=== PATIENT | male | born 1985 | race African-American/Black ===

== ENCOUNTER 2017-03-10 11:04 | Inpatient (IN) ==
[2017-03-10] MEDS ORDERED: ONDANSETRON ODT 4 MG TABLET SL PRN (12:15)
[2017-03-10] MEDS ORDERED: ZOLPIDEM 5 MG TABLET PO PRN (12:15)
[2017-03-10] MEDS ORDERED: HYDROmorphone 2 MG/ML SYRINGE IV PRN (12:15)
[2017-03-10] MEDS ORDERED: ACETAMINOPHEN 325 MG TABLET PO PRN (12:15)
[2017-03-10] MEDS ORDERED: ONDANSETRON 4 MG/2 ML VIAL IV PRN (12:15)
[2017-03-10] MEDS ORDERED: ALBUTEROL SULFATE 1 PUFF INHALER IH PRN (12:26)
[2017-03-10] MEDS ORDERED: FLUTICASONE PROPIONATE SPRAY.NAS NS PRN (12:26)
[2017-03-10] MEDS: 0.9 % SODIUM CHLORIDE 1,000 ML IV SCH (13:14)
[2017-03-10] MEDS: CLINDAMYCIN 600 MG in DEXTROSE 5% IN WATER 50 ML IV SCH ×3 (13:14→23:57)
[2017-03-10 13:29] LABS: ALT/SGPT 25 U/l (0-40); Albumin 4.1 gm/dL (3.2-5.2); Albumin/Globulin Ratio 1.3 (1.0-2.3); Alkaline Phosphatase 79 U/L (39-117); Bilirubin,Direct < 0.2 mg/dL (0.0-0.3); Blood Urea Nitrogen 7 mg/dl (6-20); Gamma Glutamyl Transpeptidase 37 U/L (8-61); Magnesium 1.7 mg/dL (1.6-2.5); Uric Acid 5.1 mg/dL (2.5-8.0)
[2017-03-10 13:48] LABS: Eosinophils % (Manual) 3 % (0-7); Lymphocytes % 47 % (15-49); Monocytes % (Manual) 5 % (1-12); Platelet Estimate NORMAL (NORMAL); RBC Morphology ABNORM (NORMAL); Segmented Neutrophils % 45 % (38-78); Target Cells 1+ (NONE SEEN)
[2017-03-10 13:50] LABS: Mean Corpuscular HGB Conc 33.9 g/dL (31.0-36.0); Mean Corpuscular Hemoglobin 30.2 pg (26.0-34.0); Platelet Count 220 K/mcL (140-440); RBC 4.82 M/mcL (4.50-5.90); Red Cell Distribution Width 13.9 % (11.5-14.5)
[2017-03-10 14:04] LABS: Erythrocyte Sedimentation Rate 14 mm/hr (0-15)
[2017-03-10] MEDS: 0.9 % SODIUM CHLORIDE 10 ML SYRINGE IV SCH ×2 (14:59→20:58)
[2017-03-10] MEDS: oxyCODONE HCL 5 MG TABLET PO PRN ×2 (15:08→20:57)
[2017-03-10] MEDS: DOCUSATE SODIUM 100 MG CAPSULE PO SCH (20:57)
[2017-03-10] MEDS: FLUTICASONE HFA 220MCG INHALER INH SCH (20:58)
[2017-03-11] MEDS: 0.9 % SODIUM CHLORIDE 1,000 ML IV SCH ×4 (02:08→17:16)
[2017-03-11] MEDS: CLINDAMYCIN 600 MG in DEXTROSE 5% IN WATER 50 ML IV SCH ×3 (05:38→18:00)
[2017-03-11] MEDS: 0.9 % SODIUM CHLORIDE 10 ML SYRINGE IV SCH ×3 (05:38→22:22)
[2017-03-11] MEDS ORDERED: PANTOPRAZOLE 40 MG TABLET PO SCH (07:30)
[2017-03-11] MEDS: DOCUSATE SODIUM 100 MG CAPSULE PO SCH ×2 (08:43→22:21)
[2017-03-11] MEDS: FLUTICASONE HFA 220MCG INHALER INH SCH ×3 (08:43→22:21)
[2017-03-11] MEDS ORDERED: ARIPIPRAZOLE 20 MG TABLET PO SCH (09:00)
[2017-03-11] MEDS ORDERED: DEXAMETHASONE 10 MG/ML VIAL ONE (14:00)
[2017-03-11] MEDS ORDERED: PROPOFOL 200 MG/20 ML VIAL IV ONE (14:00)
[2017-03-11] MEDS ORDERED: ONDANSETRON 4 MG/2 ML VIAL ONE (14:00)
[2017-03-11] MEDS ORDERED: MIDAZOLAM 5 MG/5 ML VIAL ONE (14:00)
[2017-03-11] MEDS ORDERED: fentaNYL 100 MCG/2 ML VIAL IV ONE (14:00)
[2017-03-11] MEDS ORDERED: LIDOCAINE HCL/PF 100 MG/5 ML SYRINGE IV ONE (14:00)
[2017-03-11] MEDS ORDERED: diphenhydrAMINE 50 MG/ML VIAL IV PRN (14:09)
[2017-03-11] MEDS ORDERED: LACTATED RINGERS 250 ML IV PRN (14:09)
[2017-03-11] MEDS ORDERED: ONDANSETRON 4 MG/2 ML VIAL IV PRN ×2 (14:09→15:06)
[2017-03-11] MEDS ORDERED: fentaNYL 100 MCG/2 ML VIAL IV PRN (14:09)
[2017-03-11] MEDS ORDERED: FLUMAZENIL 0.1 MG/ML ML IV PRN (14:09)
[2017-03-11] MEDS ORDERED: NALOXONE HCL 0.4 MG/ML VIAL IV PRN (14:09)
[2017-03-11] MEDS ORDERED: IPRATROPIUM/ALBUTEROL 3 ML AMPUL.NEB NEB PRN (14:09)
[2017-03-11] MEDS ORDERED: BENZOCAINE/MENTHOL 1 LOZENGE PO PRN (14:09)
[2017-03-11] MEDS ORDERED: MEPERIDINE 25 MG/ML SYRINGE IV PRN (14:09)
[2017-03-11] MEDS ORDERED: LACTATED RINGERS 1,000 ML IV SCH (14:15)
--- NOTE | 2017-03-11 14:27 | Brief Operative Note ---
Date of procedure: 03/11/17 Pre-op diagnosis: post-op wound infection;h/o necrotizing lymphadenitis Post-op diagnosis: other (same) Procedure: exploration and debridement of post operative groin wound right Grafts/Implants: No Anesthesia: GLMA Findings: thin mucopurulent drainage and fibrinous exudate Complications: none Surgeon: Pepe Shea Specimens Removed/Pathology: none sent Condition: stable Disposition: PACU
[2017-03-11] MEDS ORDERED: BACITRACIN 50,000 UNIT VIAL IR ONE ×2 (14:43)
[2017-03-11] MEDS ORDERED: ZOLPIDEM 5 MG TABLET PO PRN (15:06)
[2017-03-11] MEDS ORDERED: ONDANSETRON ODT 4 MG TABLET SL PRN (15:06)
[2017-03-11] MEDS ORDERED: oxyCODONE HCL 5 MG TABLET PO PRN (15:06)
[2017-03-11] MEDS ORDERED: ALBUTEROL SULFATE 1 PUFF INHALER IH PRN (15:06)
[2017-03-11] MEDS ORDERED: FLUTICASONE PROPIONATE SPRAY.NAS NS PRN (15:06)
[2017-03-11] MEDS: HYDROmorphone 2 MG/ML SYRINGE IV PRN ×2 (18:15→22:20)
[2017-03-12] MEDS: CLINDAMYCIN 600 MG in DEXTROSE 5% IN WATER 50 ML IV SCH ×4 (00:49→17:18)
[2017-03-12] MEDS: 0.9 % SODIUM CHLORIDE 1,000 ML IV SCH ×2 (05:58→08:46)
[2017-03-12] MEDS: 0.9 % SODIUM CHLORIDE 10 ML SYRINGE IV SCH ×3 (05:59→22:32)
[2017-03-12] MEDS: PANTOPRAZOLE 40 MG TABLET PO SCH (07:15)
[2017-03-12] MEDS: DOCUSATE SODIUM 100 MG CAPSULE PO SCH ×2 (08:45→22:33)
[2017-03-12] MEDS: ARIPIPRAZOLE 20 MG TABLET PO SCH (08:45)
[2017-03-12] MEDS: FLUTICASONE HFA 220MCG INHALER INH SCH ×2 (09:59→22:32)
--- NOTE | 2017-03-12 13:18 | General Surgery Progress Note ---
Subjective Patient reports: feels better, pain is less, tolerating a regular diet, afebrile Narrative: Note initiated : 03/12/17 at 1:16 pm Service Date, if different from initiated Date: [] Patient: Rhys Wilson 31 y/o M admitted on 03/10/17 for Groin Dissection/ Infection. Chief Complaint: [Patient is doing well. His incision has heavy drainage but otherwise is unremarkable. Will allow the nursing staff to change dressings on a as needed basis.] Objective Temp Pulse Resp BP Pulse Ox 98.1 F 68 16 136/69 100 03/12/17 12:00 03/12/17 04:00 03/12/17 12:00 03/12/17 12:00 03/12/17 12:00 - Additional Data Intake & Output - Last 24 hours: Intake & Output 03/10/17 03/11/17 03/12/17 03/13/17 05:59 05:59 05:59 05:59 Intake Total 2642 / 2642 2302 / 2302 2634 / 2634 Output Total 3275 / 3275 2750 / 2750 1600 / 1600 Balance -633 / -633 -448 / -448 1034 / 1034 Weight 158 lb 158 lb - Labs 03/10/17 12:47 03/10/17 12:47 Assessment and Plan (1) Infection of postoperative wound due to methicillin-resistant Staphylococcus aureus Status: Acute Assessment and plan: We will continue on IV Cleocin and dressing changes as needed. We will will be assessed on Tuesday as to whether or not it can be closed primarily Or VAC placed Current Visit: No - Time Spent With Patient Total time spent is greater than 50% in coordination of care (as documented) at patient's floor/unit and/or counseling patient:
[2017-03-12] MEDS: ACETAMINOPHEN 325 MG TABLET PO PRN ×2 (16:06→23:11)
[2017-03-13] MEDS: CLINDAMYCIN 600 MG in DEXTROSE 5% IN WATER 50 ML IV SCH ×5 (00:12→23:59)
[2017-03-13] MEDS: 0.9 % SODIUM CHLORIDE 10 ML SYRINGE IV SCH ×3 (05:20→20:48)
[2017-03-13] MEDS: PANTOPRAZOLE 40 MG TABLET PO SCH (06:48)
[2017-03-13] MEDS: ACETAMINOPHEN 325 MG TABLET PO PRN (06:49)
[2017-03-13] MEDS: DOCUSATE SODIUM 100 MG CAPSULE PO SCH ×2 (09:00→20:48)
[2017-03-13] MEDS: FLUTICASONE HFA 220MCG INHALER INH SCH (09:01)
[2017-03-13] MEDS: ARIPIPRAZOLE 20 MG TABLET PO SCH (09:01)
--- NOTE | 2017-03-13 15:04 | General Surgery Progress Note ---
Subjective Patient reports: feels better, pain is less, tolerating a regular diet, voiding w/o difficulty, flatus, bowel movement, afebrile Narrative: Note initiated : 03/13/17 at 3:03 pm Service Date, if different from initiated Date: [] Patient: Rhys Wilson 31 y/o M admitted on 03/10/17 for Groin Dissection/ Infection. Chief Complaint: [Patient is doing well. He has essentially no swelling of his incision. There is a moderate amount of wound drainage but no purulence. He is afebrile and there is no increased adenopathy] Objective Temp Pulse Resp BP Pulse Ox 98.0 F 56 L 16 124/79 99 03/13/17 11:46 03/13/17 06:43 03/13/17 11:46 03/13/17 11:46 03/13/17 11:46 - Additional Data Intake & Output - Last 24 hours: Intake & Output 03/11/17 03/12/17 03/13/17 03/14/17 05:59 05:59 05:59 05:59 Intake Total 2642 / 2642 2302 / 2302 5470 / 5470 894 / 894 Output Total 3275 / 3275 2750 / 2750 3625 / 3625 925 / 925 Balance -633 / -633 -448 / -448 1845 / 1845 -31 / -31 Weight 158 lb 158 lb 157 lb - Labs 03/10/17 12:47 03/10/17 12:47 Assessment and Plan (1) Infection of postoperative wound due to methicillin-resistant Staphylococcus aureus Status: Acute Assessment and plan: We will continue on IV Cleocin and dressing changes as needed. We will will be assessed on Tuesday as to whether or not it can be closed primarily Or VAC placed Current Visit: No - Time Spent With Patient Total time spent is greater than 50% in coordination of care (as documented) at patient's floor/unit and/or counseling patient:
[2017-03-14] MEDS: CLINDAMYCIN 600 MG in DEXTROSE 5% IN WATER 50 ML IV SCH ×3 (05:58→17:39)
[2017-03-14] MEDS: 0.9 % SODIUM CHLORIDE 10 ML SYRINGE IV SCH ×3 (05:58→21:52)
[2017-03-14] MEDS: FLUTICASONE HFA 220MCG INHALER INH SCH ×3 (06:38→21:46)
[2017-03-14] MEDS: PANTOPRAZOLE 40 MG TABLET PO SCH (06:59)
[2017-03-14] MEDS: ACETAMINOPHEN 325 MG TABLET PO PRN (07:04)
[2017-03-14] MEDS: ARIPIPRAZOLE 20 MG TABLET PO SCH (08:53)
[2017-03-14] MEDS: DOCUSATE SODIUM 100 MG CAPSULE PO SCH ×2 (08:53→21:46)
--- NOTE | 2017-03-14 14:44 | General Surgery Progress Note ---
Subjective Patient reports: feels better, pain is less, afebrile Narrative: Note initiated : 03/14/17 at 2:42 pm Service Date, if different from initiated Date: [] Patient: Rhys Wilson 31 y/o M admitted on 03/10/17 for Groin Dissection/ Infection. Chief Complaint: [Patient's wound continues to clean up nicely. He has early granulations. There is no purulent drainage. The wound is totally clean and will be amenable to secondary closure. Discussed this with the patient and will schedule him for closure in the OR tomorrow] Objective Temp Pulse Resp BP Pulse Ox 98.7 F 55 L 18 106/58 95 03/14/17 11:56 03/14/17 04:00 03/14/17 11:56 03/14/17 11:56 03/14/17 11:56 - Additional Data Intake & Output - Last 24 hours: Intake & Output 03/12/17 03/13/17 03/14/17 03/15/17 05:59 05:59 05:59 05:59 Intake Total 2302 / 2302 5470 / 5470 2272 / 2272 468 / 468 Output Total 2750 / 2750 3625 / 3625 2200 / 2200 350 / 350 Balance -448 / -448 1845 / 1845 72 / 72 118 / 118 Weight 158 lb 157 lb 156 lb - General physical appearance no distress - Eyes PERRL - ENT no congestion - Neck no venous distension - Respiratory normal expansion, normal respiratory effort, clear to auscultation - Cardiovascular Cardiovascular exam: Present: normal rate and rhythm, RRR, +S1, +S2. Absent: JVD - Abdomen soft, non tender, bowel sounds, distended (Abdomen is benign without tenderness ; good active bowel sounds) - Genitourinary normal penis with no external lesions, testicles present, testicles non-tender - Integumentary no rash, no growths, no abnormal pigmentation - Neurologic normal coordination, normal sensation - Musculoskeletal normal gait, normal posture, other (Operative site right medial thigh is clean with developing granulations and only serous drainage) - Psychiatric oriented to time, oriented to person, oriented to place, speech is normal, memory intact - Labs 03/10/17 12:47 03/10/17 12:47 Assessment and Plan (1) Infection of postoperative wound due to methicillin-resistant Staphylococcus aureus Status: Acute Assessment and plan: We will continue on IV Cleocin and dressing changes as needed. Discussed with patient the plan to do secondary closure tomorrow under anesthesia Current Visit: No - Time Spent With Patient Total time spent is greater than 50% in coordination of care (as documented) at patient's floor/unit and/or counseling patient:
[2017-03-15] MEDS: CLINDAMYCIN 600 MG in DEXTROSE 5% IN WATER 50 ML IV SCH ×5 (00:28→23:56)
[2017-03-15] MEDS: 0.9 % SODIUM CHLORIDE 10 ML SYRINGE IV SCH ×4 (00:33→23:56)
[2017-03-15 06:36] LABS: ALT/SGPT 18 U/l (0-40); Albumin 4.1 gm/dL (3.2-5.2); Albumin/Globulin Ratio 1.3 (1.0-2.3); Alkaline Phosphatase 76 U/L (39-117); Bilirubin,Direct < 0.2 mg/dL (0.0-0.3); Blood Urea Nitrogen 12 mg/dl (6-20); Gamma Glutamyl Transpeptidase 40 U/L (8-61); Magnesium 1.8 mg/dL (1.6-2.5); Uric Acid 5.7 mg/dL (2.5-8.0)
[2017-03-15 07:41] LABS: Basophils # (Auto) 0.1 K/mcL (0.0-0.3); Eosinophils # (Auto) 0.2 K/mcL (0.0-0.7); Eosinophils % (Auto) 2.6 % (0.0-7.0); Granulocytes % (Auto) 40.4 % (38.0-78.0); Lymphocytes % (Auto) 47.1 % (15.5-49.0); Mean Cell Volume 88.7 fL (80.0-100.0); Mean Corpuscular HGB Conc 33.8 g/dL (31.0-36.0); Monocytes # (Auto) 0.6 K/mcL (0.1-0.9); Monocytes % (Auto) 8.9 % (1.0-12.0); Platelet Count 232 K/mcL (140-440); RBC 5.12 M/mcL (4.50-5.90)
[2017-03-15] MEDS: PANTOPRAZOLE 40 MG TABLET PO SCH (10:18)
[2017-03-15] MEDS: DOCUSATE SODIUM 100 MG CAPSULE PO SCH ×2 (10:18→20:25)
[2017-03-15] MEDS ORDERED: LACTATED RINGERS 250 ML IV PRN (14:49)
[2017-03-15] MEDS ORDERED: FLUMAZENIL 0.1 MG/ML ML IV PRN (14:49)
[2017-03-15] MEDS ORDERED: fentaNYL 100 MCG/2 ML VIAL IV PRN (14:49)
[2017-03-15] MEDS ORDERED: diphenhydrAMINE 50 MG/ML VIAL IV PRN (14:49)
[2017-03-15] MEDS ORDERED: BENZOCAINE/MENTHOL 1 LOZENGE PO PRN (14:49)
[2017-03-15] MEDS ORDERED: ONDANSETRON 4 MG/2 ML VIAL IV PRN ×2 (14:49→16:26)
[2017-03-15] MEDS ORDERED: NALOXONE HCL 0.4 MG/ML VIAL IV PRN (14:49)
[2017-03-15] MEDS ORDERED: HYDROmorphone 2 MG/ML SYRINGE IV PRN ×2 (14:49→16:26)
[2017-03-15] MEDS ORDERED: IPRATROPIUM/ALBUTEROL 3 ML AMPUL.NEB NEB PRN (14:49)
[2017-03-15] MEDS ORDERED: MIDAZOLAM 2 MG/2 ML VIAL ONE (15:00)
[2017-03-15] MEDS ORDERED: fentaNYL 100 MCG/2 ML VIAL IV ONE (15:00)
[2017-03-15] MEDS ORDERED: LACTATED RINGERS 1,000 ML IV SCH (15:00)
[2017-03-15] MEDS ORDERED: ONDANSETRON 4 MG/2 ML VIAL ONE (15:00)
[2017-03-15] MEDS ORDERED: LIDOCAINE HCL/PF 100 MG/5 ML SYRINGE IV ONE (15:00)
[2017-03-15] MEDS ORDERED: PROPOFOL 200 MG/20 ML VIAL IV ONE (15:00)
[2017-03-15] MEDS ORDERED: DEXAMETHASONE 10 MG/ML VIAL ONE (15:00)
[2017-03-15] MEDS ORDERED: BACITRACIN 50,000 UNIT VIAL IR ONE (15:15)
[2017-03-15] MEDS: MEPERIDINE 25 MG/ML SYRINGE IV PRN ×2 (15:48→15:53)
--- NOTE | 2017-03-15 15:50 | Brief Operative Note ---
Date of procedure: 03/15/17 Pre-op diagnosis: post operative wound infection right thigh Post-op diagnosis: other (post operative wound infection right thigh) Procedure: secondary closure of operative incision 9cm Grafts/Implants: No Anesthesia: GLMA Findings: clean operative site without exudate or purulence Complications: none Surgeon: Pepe Shea Condition: stable Disposition: PACU
[2017-03-15] MEDS ORDERED: ALBUTEROL SULFATE 1 PUFF INHALER IH PRN (16:26)
[2017-03-15] MEDS ORDERED: FLUTICASONE PROPIONATE SPRAY.NAS NS PRN (16:26)
[2017-03-15] MEDS ORDERED: ACETAMINOPHEN 325 MG TABLET PO PRN (16:26)
[2017-03-15] MEDS ORDERED: ZOLPIDEM 5 MG TABLET PO PRN (16:26)
[2017-03-15] MEDS ORDERED: ONDANSETRON ODT 4 MG TABLET SL PRN (16:26)
[2017-03-15] MEDS: oxyCODONE HCL 5 MG TABLET PO PRN ×2 (17:09→20:24)
[2017-03-15] MEDS: ARIPIPRAZOLE 20 MG TABLET PO SCH (17:16)
[2017-03-15] MEDS: FLUTICASONE HFA 220MCG INHALER INH SCH ×2 (17:16→20:25)
[2017-03-16] MEDS: CLINDAMYCIN 600 MG in DEXTROSE 5% IN WATER 50 ML IV SCH (06:01)
[2017-03-16] MEDS: 0.9 % SODIUM CHLORIDE 10 ML SYRINGE IV SCH (06:02)
[2017-03-16] MEDS ORDERED: PANTOPRAZOLE 40 MG TABLET PO SCH (07:30)
[2017-03-16] MEDS: FLUTICASONE HFA 220MCG INHALER INH SCH (08:15)
[2017-03-16] MEDS: DOCUSATE SODIUM 100 MG CAPSULE PO SCH (08:16)
[2017-03-16] MEDS ORDERED: ARIPIPRAZOLE 20 MG TABLET PO SCH (09:00)
--- NOTE | 2017-03-17 15:05 | Operative Note ---
DATE OF OPERATION: 03/15/2017 PREOPERATIVE DIAGNOSIS: Postoperative wound infection right thigh. POSTOPERATIVE DIAGNOSIS: Postoperative wound infection right thigh. PROCEDURE: Secondary closure of operative incision 9 cm. SURGEON: Pepe Shea MD DESCRIPTION OF PROCEDURE: Under general LMA the operative site was prepped and draped in a sterile field. A timeout procedure was carried as per protocol. Vigorous curettage of the granulation tissue was carried out. Irrigation was carried out with bacitracin infused saline. Bacitracin powder was then placed in the depth of the wound. The wound was then closed in three layers using two layers of 2-0 Monocryl interrupted in the subcutaneous tissue and 2-0 Prolene in the skin. Tegaderm dressing was placed. The patient tolerated the procedure well. He was awakened, transferred to a bed and taken to the Post-Anesthetic Care Unit in stable satisfactory condition. LCS:[email or web address] Job ID: [id number] Doc ID: [id number] Pepe Shea M.D.
--- NOTE | 2017-03-22 10:34 | Operative Note ---
DATE OF OPERATION: 03/11/2017 PREOPERATIVE DIAGNOSIS: History of necrotizing lymphadenitis with postoperative wound infection. POSTOPERATIVE DIAGNOSIS: History of necrotizing lymphadenitis with postoperative wound infection. PROCEDURE: Exploration and debridement of postoperative groin wound on the right. SURGEON: Pepe Shea MD. FINDINGS: Mucopurulent drainage with fibrinous exudate. DESCRIPTION: Under general anesthesia, the right inguinal area and femoral triangle was prepped and draped in the sterile field. Davis were removed. The subcutaneous sutures were cut and some mucopurulent drainage was encountered. This was suctioned. Using Metzenbaum scissors, the residual necrotic debris and exudate was excised. A sterile brush was placed and the entire area was brushed vigorously to remove all infectious exudate. It was decided that the wound could probably be salvaged for secondary closure rather than wound VAC. Once hemostasis was achieved, the wound was covered with bacitracin powder and packed with Aquacel AG. A sterile dressing was placed. He tolerated the procedure well. He was awakened from anesthesia, transferred to a bed and taken to the postanesthetic care unit in stable, satisfactory condition. [email or web address] Job ID: [id number] Doc ID: [id number] Pepe Shea M.D.
--- NOTE | 2017-03-22 12:13 | Discharge Summary ---
Providers - Providers Patient information: Note initiated : 03/22/17 at 12:10 pm Service Date, if different from initiated Date: [] Patient: Rhys Wilson 31 y/o M admitted on 03/10/17 for Groin Dissection/ Infection. Chief Complaint: [] Date of admission: 03/11/17 Discharge date: 03/15/17 Attending physician: Pepe Shea Hospitalization Hospital course: 31-year-old malewho is status post right groin dissection for necrotizing lymphadenitis. Final cultures grew out MRSA. He developed secondary infection and was admitted on 10 March. He underwent debridement the next day and the wound was left open. He had dressing changes with Aquasol AG and had delayed secondary closure: February 2017. He was monitored overnight and the wound looked good.he was discharged in stable satisfactory condition. Discharge diagnosis: postoperative wound infection due to MRSA Secondary discharge diagnosis: necrotizing lymphadenitis right leg and groin due to MRSA Reason for admission: swelling and drainage right groin incision Procedures: exploration and debridement operative wound right groin 11 March 2017 delayed secondary closure operative incision right groin 15 March 2017 Complications: none Exam Temp Pulse Resp BP Pulse Ox 97.8 F 71 16 103/61 98 03/16/17 10:24 03/16/17 10:24 03/16/17 10:24 03/16/17 10:24 03/16/17 10:24 - General physical appearance well developed, well nourished, no distress - Eyes PERRL, normal ocular movement - ENT normal pinna, normal nares, normal mucosa, no hearing loss, no congestion - Head Head exam IM: Present: atraumatic, normocephalic - Neck no masses, no bruits, trachea midline, no lymphadectomy, no venous distension - Cardiovascular Cardiovascular exam IM: Present: normal rate and rhythm - Respiratory normal expansion, normal respiratory effort, clear to percussion, clear to auscultation - Abdomen Abdomen: Present: soft, non tender, bowel sounds Hernia: Present: none - Genitourinary Present: normal penis with no external lesions - Integumentary Present: no rash, no growths, no abnormal pigmentation, other (healing incision right groin and femoral area without evidence of purulence or inflammation) - Neurologic Present: normal coordination, normal sensation - Musculoskeletal Present: normal gait, normal posture - Psychiatric Present: oriented to time, oriented to person, oriented to place, speech is normal, memory intact Discharge Plan - Patient/Caregiver Discharge Instructions Activity: increase activity as tolerated Diet: Regular Diet Additional Instructions: May shower, no soaking in tub/pool. Do not scrub dressing. Do not use soap or lotions over dressing. Pat dry after shower. No heavy lifting. Take oral antibiotic as directed 4x daily. Take full course of antibiotics. Follow up with your primary in [place]. Watch for swelling, redness, or drainage. Call Dr. Shea's office for any concerns or questions. Prescriptions: RX: Clindamycin [Cleocin] 450 mg PO QID #60 capsule RX: HYDROcodone/APAP 10/325MG [[place] 10/325Mg] 1 tab PO Q4H PRN #60 tab PRN Reason: Pain - Follow up Plan Disposition: Home, Self-Care Prognosis: Good Rehab Potential: Good I certify that the patient requires SNF services.: No Overall status at discharge: patient is not back to baseline Pending Studies Resuscitation Status Full Code Diet Regular Diet Start TueMar 15 Breakfast Shift Summary 03/16/17 04:25 Shift Summary by Kei Nye Pt c/o pain x1 this shift. 1 Roxicodone administered @ 2023. No c/o pain since. Up to bathroom x1. Pain and stiffness @ surgery site with ambulation. Right groin surgical incision covered with tegaderm. Minimal sanguinous draining at site. Tolerating PO fluids and diet well. Significant other at bedside. Hoping to d/c today. Initialized on 03/16/17 04:25 - END OF NOTE
== END 2017-03-16 10:30 | disposition home or self-care (01) ==
LOC: MEDSUR 11:30
PROVIDERS: ADMIT Family Medicine Adult Medicine; ATTEND Family Medicine Adult Medicine